=== PATIENT | female | born 1950 | race Caucasian/White ===

== ENCOUNTER 2023-09-20 05:55 | Day surgery (SDC) | payer BC ==
[2023-09-18 10:34] VITALS: BP 145/80
[~2023-09-20] VITALS: Ht 165.1 cm; Wt 87.3 kg
[~2023-09-20 05:55] MED LIST: ACEBUTOLOL HCL400 MG PO; ADVIL200 MG PO; ALPRAZOLAM0.5 MG PO; CEFDINIR300 MG PO; COZAAR25 MG PO; IBUPROFEN400 MG PO; K-TAB ER20 MEQ PO; LIPITOR10 MG PO; LORATADINE10 MG PO; MAGNESIUM500 MG PO; MELATONIN1 MG PO; METAMUCIL660 GM PO; METFORMIN HCL500 MG PO; MIDAZOLAM HCL 5 MG/5 ML VIAL IV PRN; PRILOSEC10 MG PO; TRIAMTERENE-HC1 EAC1 PO; VENTOLIN HFA18 GM INH; fentaNYL citrate 100 MCG/2 ML VIAL IV PRN
[2023-09-20 06:14] VITALS: BP 153/75
[2023-09-20] MEDS ORDERED: propofoL 200 MG/20 ML VIAL ONE (06:32)
[2023-09-20] MEDS ORDERED: TYLENOL325 MG PO (06:38)
[2023-09-20] MEDS ORDERED: LIDOCAINE HCL 1% 5 ML SDV INJ ONE (07:00)
[2023-09-20] MEDS ORDERED: IBLOOD GLUCOSE TEST STRIP 1 EA TEST VI PRN (07:00)
[2023-09-20] MEDS ORDERED: LACTATED RINGER'S 1,000 ML IV SCH (07:00)
[2023-09-20] MEDS ORDERED: LACTATED RINGER'S 1,000 ML IV ONE (07:49)
--- NOTE | 2023-09-20 08:15 | NUR ---
09/20/23 0815 Kortney Castellanos 0810-PATIENT ARRIVED TO PACU ON 10L MASK NONAROUSABLE ORAL AIRWAY IN PLACE LAYING LEFT LATERAL ABDOMEN SOFT. SR HR 60'S IVF INFUSING. PATIENT PLACED ON 6L MASK RR EVEN.
[2023-09-20 09:05] VITALS: BP 149/67
--- NOTE | 2023-09-20 09:17 | OR ---
[facility] [address], [place] [address] Signed DATE OF OPERATION: 09/20/2023 SURGEON: Fortino Chau MD PREOPERATIVE DIAGNOSES: 1. Half sister with colon cancer. 2. Internal hemorrhoids. 3. Diverticulosis. 4. Personal history of adenomatous polyps in 2016 at age 65. 5. Some mild fecal urgency and leakage with soilage. POSTOPERATIVE DIAGNOSES: 1. 3 mm polyp at base of cecum (clip). 2. 3 mm polyp in proximal right colon. 3. Moderate sigmoid diverticulosis. 4. Minimal to moderate internal and external hemorrhoids. PROCEDURE: Colonoscopy with hot biopsy and application of clip. ESTIMATED BLOOD LOSS: None. INDICATIONS: Leela is a 73-year-old female, asked to see me for followup colonoscopy. We know her half sister had colon cancer. Leela had her one and only colonoscopy in 2016 at the age of 65. She had internal hemorrhoids along with some diverticulosis. We removed a tubular adenomatous polyp in the cecum and a tubulovillous adenomatous polyp in her proximal right colon. Both were about 5 mm in size. She has been on the five year plan. She has no current lower GI complaints. However, her recently from lung cancer a few months ago. She is now coming back for her followup colonoscopy. She mentioned that she is getting older. She is having a little bit of fecal urgency, leakage and soilage. That is actually quite common. She also told me she is difficult to wake up from anesthesia. Based on her medications, she did take a lot of propofol today and I think that is probably the reason she is a little slower to wake up from anesthesia. She also has a long list of allergies and medical issues and therefore she does need monitored anesthesia care. In the office, I gave her a pamphlet on colonoscopy. She understands the nature of the test. There is risk including, but not limited to gas bloating, crampy abdominal pain, bleeding, perforation requiring surgery, and missed diagnosis. She seems to have trouble with the bowel preps. We used Electronically Signed By: FORTINO CHAU MD 09/20/23 0917 PATIENT NAME: LEELA WARD OPERATIVE REPORT DATE OF : 48 REPORT #: [id number] PHYSICIAN: FORTINO CHAU MD PCP: KARLENE CARDOZA PA-C REPORT IS CONFIDENTIAL AND NOT TO BE RELEASED WITHOUT AUTHORIZATION [facility] [address], [place] [address] Signed MiraLAX and Gatorade along with some Dulcolax tablets. She started several hours earlier and still ended up apparently in the ER last night, although she did not mention it to me. After she was asleep, we apparently learned it from one of our nurses. I had reviewed all this with her in detail. She had expressed understanding and wished to proceed with her colonoscopy. PROCEDURE IN DETAIL: Leela was taken into our endoscopy suite and placed in the left lateral decubitus position. She was given monitored anesthesia care with propofol infusion per our nurse paper plate machine tender. A digital rectal exam was performed and she does have some small external hemorrhoid/skin tags. She had good sphincter tone. There were no masses. The adult colonoscope was introduced and advanced all around into the cecum under direct visualization of the camera without difficulty. She took just a little bit of abdominal compression and additional propofol to get the scope directly into the base of the cecum. Her prep was good. She had a couple small areas of liquid stool that we simply suctioned out. We could easily see the appendiceal orifice and the ileocecal valve. She had two tiny polyps in her colon. One in the cecum and one in the proximal right colon. Both were easily removed with the hot biopsy forceps. She had just a little bleeding from the polypectomy site in the cecum, so we placed a clip with good results. The scope was then slowly withdrawn. We took several pictures throughout for photodocumentation. She indeed has sigmoid diverticulosis. They are moderate in size, moderate in number and scattered about. Once in the rectum, the scope was retroflexed and she does have some minimal internal hemorrhoid tissue associated with at least four little skin tags. After this, the gas was suctioned out and the colonoscope removed. Leela tolerated the procedure quite well. RECOMMENDATIONS: I will see Leela back in my office in 7 to 14 days to review her results. I suspect she will stay on the five year rotation. Fortino Chau MD ALB/MODL /[id number] cc: Karlene Cardoza PA-C Electronically Signed By: FORTINO CHAU MD 09/20/23 0917 PATIENT NAME: LEELA WARD OPERATIVE REPORT DATE OF : 48 REPORT #: [id number] PHYSICIAN: FORTINO CHAU MD PCP: KARLENE CARDOZA PA-C REPORT IS CONFIDENTIAL AND NOT TO BE RELEASED WITHOUT AUTHORIZATION [facility] [address] [place], [place] [address] Signed Fortino Chau MD Copies: FORTINO CHAU MD ~ Electronically Signed By: FORTINO CHAU MD 09/20/23 0917 PATIENT NAME: LEELA WARD OPERATIVE REPORT DATE OF : 48 REPORT #: [id number] PHYSICIAN: FORTINO CHAU MD PCP: KARLENE CARDOZA PA-C REPORT IS CONFIDENTIAL AND NOT TO BE RELEASED WITHOUT AUTHORIZATION
--- NOTE | 2023-09-20 09:26 | NUR ---
0900: PATIENT BACK IN DAY SURGERY ROOM FROM PACU. DENIES PAIN. DROWSY. VS CHECKED. 0910: PATIENT ASSISTED OOB AND TO BATHROOM. GAIT STEADY. VOID WITHOUT DIFFICULTY. GAIT STEADY BACK TO ROOM. 09: BREAKFAST ORDERED FOR PATIENT PER REQUEST. COFFEE PLACED AT BEDSIDE. CALL LIGHT WITHIN REACH. PATIENT SLEEPING.
[2023-09-20 10:10] VITALS: BP 152/78
--- NOTE | 2023-09-20 10:25 | NUR ---
0935: PATIENT ASSISTED UP TO BATHROOM. GAIT STEADY TO BATHROOM AND BACK TO ROOM. BREAKFAST HERE. CALL LIGHT WITHIN REACH. 1010: VS CHECKED. PATIENT ASSISTED UP TO BATHROOM. GAIT STEADY TO AND FROM BATHROOM. PATIENT GETTING DRESSED.
--- NOTE | 2023-09-20 11:28 | NUR ---
1040: DISCHARGE INSTRUCTIONS GIVEN TO PATIENT. PATIENT ASSISTED UP TO BATHROOM. GAIT STEADY. PATIENT BACK IN BED IN ROOM. CALL LIGHT WITHIN REACH. WAITING FOR RIDE TO ARRIVE. 1100: IV DC'D WNL BY SRT. TIP INTACT. DRESSING APPLIED. STAND BY ASSIST BY SRT TO BATHROOM. 1105: PATIENT DISCHARGED TO HOME VIA WHEELCHAIR WITH FRIEND.
--- NOTE | 2023-09-27 06:06 | PATH ---
[facility] [address] [facility] [place], [place] [address] Signed SPECIMEN(S): A CECUM POLYP SPECIMEN(S): B PROXIMAL ASCENDING POLYP SPECIMEN SOURCE: A. CECUM POLYP B. PROXIMAL ASCENDING POLYP CLINICAL HISTORY: 2016 - 2.5 mm polyp; diverticulosis FINAL PATHOLOGIC DIAGNOSIS: A. Cecum, polypectomy: - Tubular adenoma B. Colon, proximal ascending, polypectomy: - Tubular adenoma BRP MICROSCOPIC EXAMINATION: Histologic sections of all submitted blocks are examined by light microscopy. These findings, together with the gross examination, support the pathologic diagnosis. GROSS DESCRIPTION: A. The specimen, labeled and designated "Zuzel, cecum polyp," is received in formalin and consists of one sloan soft tissue fragment, 0.2 cm. Entirely submitted in (A1). B. The specimen, labeled and designated "Zuzel, proximal ascending polyp," is received in formalin and consists of one sloan soft tissue fragment, 0.3 cm. Entirely submitted in (B1). VB (under the direct supervision of a pathologist) The Gross Description was prepared using a voice recognition system. The report was reviewed for accuracy; however, sound-alike word errors, addition and/or deletions may occur. If there is any question about this report, please contact Client Services. ADDITIONAL NOTES: Immunohistochemical and/or in situ hybridization studies if performed in this case included appropriate positive controls that reacted as expected. This test was developed and its performance characteristics determined by [facility]. It has not been cleared or approved by the U.S. Food and Drug Administration. The FDA has determined that PATIENT NAME: LEELA WARD PATHOLOGY DATE OF : 48 REPORT #: [id number] PHYSICIAN: BRANDI LANDRY PCP: KARLENE LOERA PA-C REPORT IS CONFIDENTIAL AND NOT TO BE RELEASED WITHOUT AUTHORIZATION [address] [address] Signed such clearance or approval is not necessary. This test is used for clinical purposes. It should not be regarded as investigational or for research. [facility] is certified under the Clinical Laboratory Improvement Amendments of 1988 (CLIA) as qualified to perform high complexity clinical laboratory testing. PERFORMING LABORATORY: Technical component was performed by [facility], [address] [place] [address] (CLIA# [id number]). Professional interpretation was performed by [facility] [address] [place] [phone] [id number] Diagnostician: William Larsen MD Pathologist Electronically Signed 09/26/2023 Copies: ~ PATIENT NAME: LEELA WARD PATHOLOGY DATE OF : 48 REPORT #: [id number] PHYSICIAN: BRANDI LANDRY PCP: BROWN,KARLENE PA-C REPORT IS CONFIDENTIAL AND NOT TO BE RELEASED WITHOUT AUTHORIZATION
== END 2023-09-20 11:05 | disposition home or self-care (01) ==
LOC: DS 05:55 → OPS 05:55 → DS 07:30 → OPS 11:05
PROVIDERS: ATTEND Colon & Rectal Surgery
PROC: 0DBE8ZX Excision of Large Intestine, Via Natural or Artificial Opening Endoscopic, Diagnostic (ICD-10-PCS; principal; 2023-09-20 07:30)
DX: Z12.11 Encounter for screening for malignant neoplasm of colon (principal); D12.0 Benign neoplasm of cecum; D12.2 Benign neoplasm of ascending colon; K57.30 Diverticulosis of large intestine without perforation or abscess without bleeding; K64.8 Other hemorrhoids; K64.4 Residual hemorrhoidal skin tags; Z80.0 Family history of malignant neoplasm of digestive organs; Z86.010 Personal history of colon polyps; I10 Essential (primary) hypertension; E11.9 Type 2 diabetes mellitus without complications; F41.9 Anxiety disorder, unspecified; K21.00 Gastro-esophageal reflux disease with esophagitis, without bleeding; E78.5 Hyperlipidemia, unspecified; Z88.5 Allergy status to narcotic agent; Z88.1 Allergy status to other antibiotic agents; Z88.8 Allergy status to other drugs, medicaments and biological substances; Z79.899 Other long term (current) drug therapy
CPT/HCPCS: 00811; J2704; J7121

== ENCOUNTER 2024-09-13 20:01 | Observation (INO) | payer BC ==
[~2024-09-13] VITALS: Ht 165.1 cm; Wt 91.4 kg
[~2024-09-13 20:01] MED LIST changes: -MIDAZOLAM HCL 5 MG/5 ML VIAL IV PRN; +TYLENOL325 MG PO; -fentaNYL citrate 100 MCG/2 ML VIAL IV PRN
[2024-09-13 20:35] LABS: BASOPHILS 0.3 % (0.1-1.2); EOSINOPHILS 1.0 % (0.7-5.8); LYMPHOCYTES 5.6 % (19.3-51.7); MCH 31.1 PG (25.6-32.2); MCHC 34.4 g/dL (32.2-35.5); MCV 90.4 fL (79.4-94.8); MONOCYTES 4.8 % (4.7-12.5); NEUTROPHILS 87.9 % (34.0-71.1); RBC 4.92 M/uL (3.93-5.22)
[2024-09-13 20:58] LABS: ALT (SGPT) 34.0 U/L (14-59); AST (SGOT) 29.0 U/L (15-37); GLOMERULAR FILTRATION RATE,EST 65.0 mL/min (>60); PROTEIN, TOTAL 7.8 g/dL (6.4-8.2); UREA NITROGEN 20.0 mg/dL (7-18)
[2024-09-13] MEDS ORDERED: SODIUM CHLORIDE 0.9% 1,000 ML IV SCH (21:00)
[2024-09-13 21:01] LABS: BLOOD/HGB, URINE NEGATIVE (Negative); KETONE, URINE NEGATIVE (Negative); LEUK ESTERASE, URINE NEGATIVE (negative); NITRITE, URINE POSITIVE (negative)
[2024-09-13 21:13] LABS: BACTERIA, URINE 3+ /hpf (negative); CRYSTALS, URINE NONE SEEN (0-1+); EPITHELIAL CELLS, URINE SQUAMOUS 2+ /lpf (0-1+)
[2024-09-13 21:14] LABS: CASTS, URINE NONE SEEN \\lpf; REFLEX CULTURE, URINE No (No)
[2024-09-13] MEDS ORDERED: POTASSIUM CHLORIDE 40 MEQ in DEXTROSE 5% 250 ML IV ONE (21:45)
[2024-09-13] MEDS ORDERED: MAGNESIUM SULFATE 4 GM/100 ML BAG IV ONE (21:45)
--- NOTE | 2024-09-13 22:10 | NUR ---
2209 - pt arrived from er via stretcher. on room air at this time. Pt alert and oriented, c/o chills, warm blanket give. Pure wick in place, pt stated incontinence ad dribblig. burping, no emesis. slight redness under breasts noted. no other skin issues at this time. IVF bolus from Er infusing at this time. Cooperative with admit questions and assessments. No c/o pain at this time, Oriented to room and procedures
[2024-09-13 22:16] VITALS: BP 152/65
[2024-09-13] MEDS ORDERED: POTASSIUM CHLORIDE 10 MEQ/100 ML BAG IV SCH (23:00)
--- NOTE | 2024-09-13 23:39 | NUR ---
TC TO DR. HAMPTON TO DISCUSS PATIENT NAUSEA AND GENERALIZED PAIN. NEW ORDERS RECEIVED.
[2024-09-13] MEDS ORDERED: LORazepam 2 MG/ML VIAL IV PRN (23:45)
[2024-09-13] MEDS ORDERED: IBUPROFEN 400 MG TAB PO PRN (23:45)
[2024-09-13] MEDS ORDERED: ACETAMINOPHEN 325 MG TAB PO PRN (23:45)
--- NOTE | 2024-09-14 00:25 | NUR ---
PATIENT REPORTED NAUSEA, DRY HEAVING NOTED. PRN MEDICATION ADMINISTERED PER ORDER. SCHEDULED IV MEDICATION STARTED PER ORDER. PATIENT RESTING, RESPIRATIONS EVEN AND UNLABORED. PATIENT DECLINES FURTHER NEEDS, CALL LIGHT IN REACH
--- NOTE | 2024-09-14 00:39 | NUR ---
PATIENT RESTING WITH EYES CLOSED, RESPIRATIONS EVEN AND UNLABORED. IV MEDICATION INFUSING WITHOUT DIFFICULTY. NO NEEDS IDENTIFIED, CALL LIGHT IN REACH
[2024-09-14 02:08] VITALS: BP 153/76
--- NOTE | 2024-09-14 02:13 | NUR ---
VS OBTAINED AND RECORDED. IV MEDICATION INFUSING WITHOUT DIFFICULTY. PATIENT REPORTS NAUSEA HAS IMPROVED AT THIS TIME. RESPIRATIONS EVEN AND UNLABORED, CPOX AT BEDSIDE, PATIENT ON ROOM AIR AT THIS TIME. WARM BLANKET PROVIDED PER REQUEST. NO FURTHER NEEDS, CALL LIGHT IN REACH
--- NOTE | 2024-09-14 03:00 | NUR ---
JAVID CARE COMPLETE, NEW BRIEF, CHUX PAD UNDER PATIENT CHANGED. NEW ALEKS. PATIENT HAD SOILED CHUX PAD UNDERNEATH HER. SHE REPORTS FEELING MUCH BETTER WITH NO NAUSEA AT THIS TIME. REQUESTS ICE CHIPS. OTHERWISE DENIES NEEDS. CALL LIGHT IN REACH
[2024-09-14 03:03] VITALS: BP 153/76
--- NOTE | 2024-09-14 04:10 | NUR ---
IV MEDICATION COMPLETE. IV SALINE LOCKED AT THIS TIME. PATIENT DENIES ANY NEEDS, CALL LIGHT IN REACH
[2024-09-14 05:37] VITALS: BP 133/59
--- NOTE | 2024-09-14 05:40 | NUR ---
VS OBTAINED AND RECORDED. PATIENT ASSISTED UP TO RESTROOM TO VOID, USED X1 ASSIST. PATIENT BALANCED USING THE WALL. OTHERWISE DID WELL AND STEADY ON FEET. BACK TO BED WITHOUT DIFFICULTY USING X1 ASSIST. PATIENT DENIES FURTHER NEEDS, CALL LIGHT IN REACH
[2024-09-14 06:09] LABS: BASOPHILS 0.2 % (0.1-1.2); EOSINOPHILS 0 % (0.7-5.8); LYMPHOCYTES 1.9 % (19.3-51.7); MCH 31.1 PG (25.6-32.2); MCHC 35.4 g/dL (32.2-35.5); MCV 87.8 fL (79.4-94.8); MONOCYTES 2.0 % (4.7-12.5); NEUTROPHILS 95.4 % (34.0-71.1); RBC 4.85 M/uL (3.93-5.22)
[2024-09-14 06:29] LABS: ALT (SGPT) 30.0 U/L (14-59); AST (SGOT) 22.0 U/L (15-37); GLOMERULAR FILTRATION RATE,EST 62.0 mL/min (>60); PROTEIN, TOTAL 7.4 g/dL (6.4-8.2); UREA NITROGEN 25.0 mg/dL (7-18)
[2024-09-14 06:53] VITALS: BP 133/59
--- NOTE | 2024-09-14 07:28 | NUR ---
PT RESTING IN BED, REPORTS NAUSEA BETTER AT THIS TIME. DENIES ANY ABD PAIN. REPORTS SOME HEADACHE FROM PILLOW, 04/07. UPDATED ON PLAN FOR TODAY, DENIES ANY NEEDS
--- NOTE | 2024-09-14 08:16 | NUR ---
IN TO DO MORNING ROUNDS, BOARD UPDATED, WARM WASHCLOTH GIVEN. PATIENT REFUSED TO GET UP TO CHAIR AT THIS TIME, SITTING UP IN BED FOR BREAKFAST. CALL LIGHT IN REACH. NO FURTHER NEEDS AT THIS TIME.
[2024-09-14] MEDS ORDERED: ENOXAPARIN SODIUM 40 MG/0.4 ML SYR SUB-Q SCH (09:00)
[2024-09-14] MEDS ORDERED: PANTOPRAZOLE SODIUM 40 MG TABEC PO SCH (09:00)
[2024-09-14] MEDS ORDERED: MACROBID 100 M100 MG PO (09:07)
[2024-09-14] MEDS ORDERED: ONDANSETRON ODT4 MG PO (09:08)
--- NOTE | 2024-09-14 09:12 | NUR ---
INTO ROOM FOR MEDICATION ADMINISTRATION. PT RESTING IN BED, REPORTS HEADACHE IS GONE AT THIS TIME. DENIES ABD PAIN OR NAUSEA. PT NEEDING TO USE BATHROOM, PT AMBULATED TO BATHROOM VIA STAND BY ASSIST. REPORTS SOME DIZZINESS, BUT PT STEADY ON FEET. BREAKFAST TRAY CLEARED, DENIES FURTHER NEEDS. CALL LIGHT IN REACH
[2024-09-14 09:21] VITALS: BP 134/56
[2024-09-14 09:23] VITALS: BP 134/56
[2024-09-14] MEDS ORDERED: PHARMACY RENAL DOSE ADJUSTMENT 1 DOSE MISC PO SCH (12:00)
== END 2024-09-14 10:40 | disposition home or self-care (01) ==
LOC: ED 20:01 → MS 20:03
PROVIDERS: Emergency Medicine; ADMIT Student in an Organized Health Care Education/Training Program; ATTEND Student in an Organized Health Care Education/Training Program
DX: N39.0 Urinary tract infection, site not specified (principal); E11.9 Type 2 diabetes mellitus without complications; K21.9 Gastro-esophageal reflux disease without esophagitis; I10 Essential (primary) hypertension; E87.1 Hypo-osmolality and hyponatremia; E87.6 Hypokalemia; E83.42 Hypomagnesemia; E78.5 Hyperlipidemia, unspecified; Z66 Do not resuscitate; Z79.84 Long term (current) use of oral hypoglycemic drugs; Z79.899 Other long term (current) drug therapy; Z88.1 Allergy status to other antibiotic agents; Z88.5 Allergy status to narcotic agent; Z88.8 Allergy status to other drugs, medicaments and biological substances; Z91.040 Latex allergy status
CPT/HCPCS: 36415; 51701; 80053; 81001; 83690; 83735; 85025; 96361; 96365; 96366; 96367; 96368; 96372; 96375; 97161; 99285-25; A9270; G0378; J0696; J1650; J2060; J2405; J3475; J3480; J7030